=== PATIENT | female | born 1970 | race Caucasian/White ===

== ENCOUNTER 2016-11-30 14:04 | Emergency (ER) | payer BC, OTHER ==
[~2016-11-30] VITALS: Ht 167.6 cm; Wt 62.8 kg
[2016-11-30 14:14] VITALS: TEMP 36.6; Ht 167.6 cm; Wt 62.8 kg
--- NOTE | 2016-11-30 15:13 | EMERGENCY ROOM VISIT NOTE ---
History Report prepared by Mandy: Ky Krueger Under the Supervision of: Dr. Fabian Vail M.D. First contact with patient: 14:58 Chief Complaint: MENTAL HEALTH EVALUATION Stated Complaint: MHMR History of Present Illness The patient is a 46 year old female who presents to the Emergency Room with complaints of sudden detainment by police beginning just prior to arrival. As per law enforcement and the mental health therapeutic case manager, the patient showed up in the [facility] parking lot waving maxi pads in the air saying she was getting ready for a parade. She states the patient wants to manuel the [facility] for violating her rights. The therapeutic case manager notes the patient tried to run into traffic, and the police tackled her and filed a 302. She notes EMS and the police had contact with the patient over the weekend. As per patient, she would like to get back to [place], [place]. She states she is traveling through the area with her sister, but states, my sister is committing suicide right now. The patient complains of vaginal bleeding for nine days. She denies medical and mental health problems. The patient notes a previous history of drug use. Source of History: patient, nursing staff (mental health therapeutic case manager) Onset: just prior to arrival Position: other (global) Quality: other (detainment by police) Timing: other (sudden) Note: Associated symptoms: vaginal bleeding for nine days. Review of Systems All systems have been listed, reviewed, and are negative other than those previously mentioned. Please see Additional Medical History Sheet. Past Medical & Surgical Medical Problems: (1) No pertinent past medical history Family History Patient reports no known family medical history. Social History Smoking Status: Never Smoker Marital Status: single Occupation Status: unemployed Current/Historical Medications No Active Prescriptions or Reported Meds Allergies Coded Allergies: Sulfa Antibiotics (Verified Allergy, Mild, RASH, 11/30/16) Penicillins (Verified Allergy, Unknown, unknown, 11/30/16) Physical Exam Vital Signs Date Time Temp Pulse Resp B/P Pulse Ox O2 Delivery O2 Flow Rate FiO2 12/01/16 00:42 100 16 106/48 97 Room Air 11/30/16 14:14 36.6 114 20 146/91 98 Room Air Physical Exam GENERAL: Patient awake, alert, very vocal, uncooperative. Irrational and very agitated. SKIN: No erythema, pallor, cyanosis or rash HEENT: Normal head, pupils equal, reactive to light and accommodation. LUNGS: Clear to auscultation. No wheezes, no rales, no rhonchi. HEART: No murmurs. No gallops. No rubs ABDOMEN: Soft, nontender. EXTREMITIES: No signs of trauma or infection. NEUROLOGIC: Cranial nerves II-XII within normal limits. No gross motor sensory function deficits. PSYCHIATRIC: Patient is alert, oriented, extremely agitated, irrational, and uncooperative. Medical Decision & Procedures Laboratory Results 11/30/16 16:00 11/30/16 16:00 Test 11/30/16 00:00 11/30/16 16:00 11/30/16 17:01 Urine Test NEG (NEG) Red Blood Count 4.66 M/uL (4.2-5.4) Mean Corpuscular Volume 81.5 fL (80-100) Mean Corpuscular Hemoglobin 27.5 pg (25-34) Mean Corpuscular Hemoglobin Concent 33.7 g/dl (32-36) RDW Standard Deviation 41.4 fL (36.4-46.3) RDW Coefficient of Variation 14.2 % (11.5-14.5) Mean Platelet Volume 9.4 fL (7.4-10.4) Anion Gap 10.0 mmol/L (3-11) Est Creatinine Clear Calc Drug Dose 79.2 ml/min Estimated GFR () 98.0 Estimated GFR (Non- 84.6 BUN/Creatinine Ratio 12.6 (10-20) Calcium Level 9.2 mg/dl (8.5-10.1) Total Bilirubin 0.8 mg/dl (0.2-1) Aspartate Amino Transf (AST/SGOT) 27 U/L (15-37) Alanine Aminotransferase (ALT/SGPT) 28 U/L (12-78) Alkaline Phosphatase 64 U/L (45-117) Total Protein 7.9 gm/dl (6.4-8.2) Albumin 4.2 gm/dl (3.4-5.0) Globulin 3.7 gm/dl (2.5-4.0) Albumin/Globulin Ratio 1.1 (0.9-2) Thyroid Stimulating Hormone (TSH) 1.590 uIu/ml (0.300-4.500) Ethyl Alcohol mg/dL < 3.0 mg/dl (0-3) Urine Color ORANGE Urine Appearance CLOUDY (CLEAR) Urine pH 5.0 (4.5-7.5) Urine Specific [place] 1.031 (1.000-1.030) Urine Protein 1+ (NEG) Urine Glucose (UA) NEG (NEG) Urine Ketones 1+ (NEG) Urine Occult Blood 2+ (NEG) Urine Nitrite NEG (NEG) Urine Bilirubin NEG (NEG) Urine Urobilinogen NEG (NEG) Urine Leukocyte Esterase SMALL (NEG) Urine WBC (Auto) 5-10 /hpf (0-5) Urine RBC (Auto) >30 /hpf (0-4) Urine Hyaline Casts (Auto) 5-10 /lpf (0-5) Urine Epithelial Cells (Auto) 10-20 /lpf (0-5) Urine Bacteria (Auto) NEG (NEG) Urine Opiates Screen NEG (NEG) Urine Methadone, Qualitative NEG (NEG) Urine Barbiturates NEG (NEG) Urine Phencyclidine (PCP) Level NEG (NEG) Ur Amphetamine/Methamphetamine NEG (NEG) MDMA (Ecstasy) Screen NEG (NEG) Urine Benzodiazepines Screen NEG (NEG) Urine Cocaine Metabolite NEG (NEG) Urine Marijuana (THC) NEG (NEG) Laboratory results as stated above per my review. Medications Administered Medications (Trade) Dose Ordered Sig/Svitlana Route Start Time Stop Time Status Last Admin Dose Admin Haloperidol Lactate (Haldol Inj) 5 mg NOW STAT IM 11/30/16 18:27 11/30/16 18:30 DC 11/30/16 18:35 5 MG Lorazepam (Ativan Inj) 1 mg NOW STAT IM 11/30/16 18:27 11/30/16 18:30 DC 11/30/16 18:35 1 MG ED Course 1502: Past medical records reviewed. The patient was evaluated in room A7. A complete history and physical examination was performed. 1628: As per psychiatric therapeutic case manager, the patient continues to show aggressive behavior and noncompliance. Patient needs chemical restraints. Patient will be given Haldol and Ativan. 1630: Ordered Ativan Inj 1 mg IM, Haldol Inj 5 mg IM. 1725: Reevaluated the patient at this time, and the patient was not given Haldol and Ativan. The restrains were cancelled. The patient is more cooperative now. 1754: Ordered Motrin Tab 600 mg PO. 1826: Ordered Ativan Inj 1 mg IM, Haldol Inj 5 mg IM. 2229: It is noted [facility] suspended the bed search until the morning. 2231: Went to reevaluate the patient at this time, but she was sleeping. The patient was signed out to DYLAN eDnis (Emergency Medicine) at change of shift. 54 patient was reevaluated. The patient does not believe that she needs to be here. Medical Decision Nurses notes reviewed. Medical history sheet reviewed. Differential diagnosis includes but is not limited to: acute abran, psychosis, depression, medication noncompliance. Multiple labs were evaluated. Please see above. The patient was brought here by police. She had been reportedly waving her bloody underwear around and running out into traffic. The patient is extremely agitated and irrational. She is unable to care for herself. The patient will need further psychiatric evaluation and treatment. I do not believe this can safely be done as an outpatient. The patient did require chemical restraints while here in the ED. The patient was signed off to Dr. Robert Torres at change of shift. We are awaiting bed placement. Impression Primary Impression: Altered mental status Additional Impressions: Suicidal behavior Agitation Scribe Attestation The scribe's documentation has been prepared under my direction and personally reviewed by me in its entirety. I confirm that the note above accurately reflects all work, treatment, procedures, and medical decision making performed by me. Departure Information Dispostion Still a Patient (DYLAN Denis (Emergency Medicine)) Prescriptions No Active Prescriptions or Reported Meds Referrals No Doctor, Assigned (PCP) Problem Qualifiers
[2016-11-30 16:10] LABS: MEAN CELL VOLUME 81.5 fL (80-100); MEAN CORPUSCULAR HEMOGLOBIN 27.5 pg (25-34); MEAN CORPUSCULAR HGB CONC 33.7 g/dl (32-36); MEAN PLATELET VOLUME 9.4 fL (7.4-10.4); PLATELET COUNT 282 K/uL (130-400); RED BLOOD COUNT 4.66 M/uL (4.2-5.4); WHITE BLOOD COUNT 9.56 K/uL (4.8-10.8)
[2016-11-30] MEDS ORDERED: LORAZEPAM 2 MG/ML 1 ML VIAL IM STA ×2 (16:30→18:27)
[2016-11-30] MEDS ORDERED: HALOPERIDOL LACTATE 5 MG/ML 1 ML VIAL IM STA ×2 (16:30→18:27)
[2016-11-30 16:33] LABS: BUN/CREATININE RATIO 12.6 (10-20); CALCIUM 9.2 mg/dl (8.5-10.1); CREATININE 0.83 mg/dl (0.60-1.20); POTASSIUM 3.5 mmol/L (3.5-5.1)
[2016-11-30 16:44] LABS: ALB/GLOB RATIO 1.1 (0.9-2); THYROID STIMULATING HORMONE 1.59 uIu/ml (0.300-4.500)
[2016-11-30 17:15] LABS: URINE APPEARANCE CLOUDY (CLEAR); URINE BILIRUBIN NEG (NEG); URINE COLOR ORANGE; URINE NITRITE NEG (NEG); URINE SPECIFIC GRAVITY 1.031 (1.000-1.030); UROBILINOGEN NEG (NEG)
[2016-11-30 17:16] LABS: MANUAL MICROSCOPIC REQUIRED? NO; REVIEW REQ? NO
[2016-11-30 17:49] LABS: BENZODIAZEPINE, URINE NEG (NEG); COCAINE,URINE NEG (NEG); PHENCYCLIDINE, URINE NEG (NEG)
[2016-11-30] MEDS ORDERED: IBUPROFEN 600 MG TAB PO STA (17:54)
--- NOTE | 2016-12-01 02:55 | EMERGENCY ROOM VISIT NOTE ---
ED Visit Note First contact with patient: 01:14 This patient was taken in sign out from Dr. Vail. She was resting comfortably without complaints. The patient is pending a bed search for 302 treatment. Her case was signed out to Dr. Gordon at the change of shift.
--- NOTE | 2016-12-01 06:34 | DIAGNOSTIC IMAGING REPORT ---
HEAD CT NONCONTRAST CT DOSE: 1535.66 mGy.cm HISTORY: Mental status change altered TECHNIQUE: Multiaxial CT images of the head were performed without the use of intravenous contrast. Comparison: None Findings: The paranasal sinuses and mastoid air cells are clear. The calvarium and skull base are intact. The ventricles and sulci are within normal limits. There is no mass, hematoma, midline shift, or acute infarct. Impression: No acute intracranial abnormality. Electronically signed by: Cuco Murray M.D. 12/01/2016 6:32 AM Dictated Date/Time: 12/01/2016 6:31 AM
--- NOTE | 2016-12-01 08:41 | EMERGENCY ROOM VISIT NOTE ---
ED Visit Note Pt signed out to me at change of shift. Pt accepted to the [facility]. No further incident. Current/Historical Medications No Active Prescriptions or Reported Meds Allergies Coded Allergies: Sulfa Antibiotics (Verified Allergy, Mild, RASH, 11/30/16) Penicillins (Verified Allergy, Unknown, unknown, 11/30/16) Vital Signs Date Time Temp Pulse Resp B/P Pulse Ox O2 Delivery O2 Flow Rate FiO2 12/01/16 07:05 84 18 103/49 97 Room Air 12/01/16 00:42 100 16 106/48 97 Room Air 11/30/16 14:14 36.6 114 20 146/91 98 Room Air Laboratory Results 11/30/16 16:00 11/30/16 16:00 Test 11/30/16 00:00 11/30/16 16:00 11/30/16 17:01 Urine Test NEG (NEG) Red Blood Count 4.66 M/uL (4.2-5.4) Mean Corpuscular Volume 81.5 fL (80-100) Mean Corpuscular Hemoglobin 27.5 pg (25-34) Mean Corpuscular Hemoglobin Concent 33.7 g/dl (32-36) RDW Standard Deviation 41.4 fL (36.4-46.3) RDW Coefficient of Variation 14.2 % (11.5-14.5) Mean Platelet Volume 9.4 fL (7.4-10.4) Anion Gap 10.0 mmol/L (3-11) Est Creatinine Clear Calc Drug Dose 79.2 ml/min Estimated GFR () 98.0 Estimated GFR (Non- 84.6 BUN/Creatinine Ratio 12.6 (10-20) Calcium Level 9.2 mg/dl (8.5-10.1) Total Bilirubin 0.8 mg/dl (0.2-1) Aspartate Amino Transf (AST/SGOT) 27 U/L (15-37) Alanine Aminotransferase (ALT/SGPT) 28 U/L (12-78) Alkaline Phosphatase 64 U/L (45-117) Total Protein 7.9 gm/dl (6.4-8.2) Albumin 4.2 gm/dl (3.4-5.0) Globulin 3.7 gm/dl (2.5-4.0) Albumin/Globulin Ratio 1.1 (0.9-2) Thyroid Stimulating Hormone (TSH) 1.590 uIu/ml (0.300-4.500) Ethyl Alcohol mg/dL < 3.0 mg/dl (0-3) Urine Color ORANGE Urine Appearance CLOUDY (CLEAR) Urine pH 5.0 (4.5-7.5) Urine Specific [place] 1.031 (1.000-1.030) Urine Protein 1+ (NEG) Urine Glucose (UA) NEG (NEG) Urine Ketones 1+ (NEG) Urine Occult Blood 2+ (NEG) Urine Nitrite NEG (NEG) Urine Bilirubin NEG (NEG) Urine Urobilinogen NEG (NEG) Urine Leukocyte Esterase SMALL (NEG) Urine WBC (Auto) 5-10 /hpf (0-5) Urine RBC (Auto) >30 /hpf (0-4) Urine Hyaline Casts (Auto) 5-10 /lpf (0-5) Urine Epithelial Cells (Auto) 10-20 /lpf (0-5) Urine Bacteria (Auto) NEG (NEG) Urine Opiates Screen NEG (NEG) Urine Methadone, Qualitative NEG (NEG) Urine Barbiturates NEG (NEG) Urine Phencyclidine (PCP) Level NEG (NEG) Ur Amphetamine/Methamphetamine NEG (NEG) MDMA (Ecstasy) Screen NEG (NEG) Urine Benzodiazepines Screen NEG (NEG) Urine Cocaine Metabolite NEG (NEG) Urine Marijuana (THC) NEG (NEG) Medications Administered Medications (Trade) Dose Ordered Sig/Svitlana Route Start Time Stop Time Status Last Admin Dose Admin Haloperidol Lactate (Haldol Inj) 5 mg NOW STAT IM 11/30/16 18:27 11/30/16 18:30 DC 11/30/16 18:35 5 MG Lorazepam (Ativan Inj) 1 mg NOW STAT IM 11/30/16 18:27 11/30/16 18:30 DC 11/30/16 18:35 1 MG Departure Information Impression Primary Impression: Altered mental status Additional Impressions: Agitation Suicidal behavior Dispostion Still a Patient Prescriptions No Active Prescriptions or Reported Meds Referrals No Doctor, Assigned (PCP) Patient Instructions My [facility] Problem Qualifiers
[2016-12-01 09:33] VITALS: BP 138/74; PULSE 72; O2SAT 99
== END 2016-12-01 09:33 ==
LOC: C.EDA 14:05
DX: R41.82 Altered mental status, unspecified (principal); R45.1 Restlessness and agitation; R45.851 Suicidal ideations